=== PATIENT | female | born 1970 | race Caucasian/White ===

== ENCOUNTER 2020-11-17 12:14 | Emergency (ER) | payer OTHER ==
[~2020-11-17] VITALS: Ht 162.6 cm; Wt 56.7 kg
[2020-11-17] MEDS ORDERED: NORFLEX100MG PO (15:43)
[2020-11-17] MEDS ORDERED: KETO10TA2 PO (15:43)
== END 2020-11-17 16:09 | disposition home or self-care (01) ==
LOC: ER 12:14
DX: S13.4XXA Sprain of ligaments of cervical spine, initial encounter (principal); S50.12XA Contusion of left forearm, initial encounter; V49.9XXA Car occupant (driver) (passenger) injured in unspecified traffic accident, initial encounter; Y93.89 Activity, other specified; Y92.488 Other paved roadways as the place of occurrence of the external cause; Y99.8 Other external cause status

== ENCOUNTER 2022-12-12 12:31 | Emergency (ER) | payer OTHER ==
[~2022-12-12] VITALS: Ht 165.1 cm; Wt 59.0 kg
[~2022-12-12 12:31] MED LIST: KETO10TA2 PO; NORFLEX100MG PO
== END 2022-12-12 20:30 | disposition home or self-care (01) ==
LOC: ER 12:31
DX: K52.9 Noninfective gastroenteritis and colitis, unspecified (principal)